=== PATIENT | female | born 1975 | race Caucasian/White ===

== ENCOUNTER 2016-09-04 10:11 | Emergency (ER) | payer MEDICAID ==
[~2016-09-04] VITALS: Ht 160 cm; Wt 89.2 kg
[2016-09-04 10:13] VITALS: BP 145/77
[2016-09-04] MEDS ORDERED: KETOROLAC 30 MG/1 ML ONE (10:57)
[2016-09-04] MEDS ORDERED: KETOROLAC 30 MG/1 ML IM ONE (11:00)
== END 2016-09-04 11:31 | disposition home or self-care (01) ==
LOC: ED 10:51
DX: H66.002 Acute suppurative otitis media without spontaneous rupture of ear drum, left ear (principal); J01.00 Acute maxillary sinusitis, unspecified
CPT/HCPCS: 96372; 99283; J1885

== ENCOUNTER 2018-01-28 20:46 | Emergency (ER) | payer MEDICAID ==
[~2018-01-28] VITALS: Ht 160 cm; Wt 78.8 kg
[2018-01-28 21:23] LABS: BASOPHILS # (AUTO) 0.04 x10^3/uL (0-0.1); BASOPHILS % (AUTO) 0 % (0-1); EOSINOPHILS # (AUTO) 0.04 x10^3/uL (0-0.4); EOSINOPHILS % (AUTO) 0 % (1-7); LYMPHOCYTES # (AUTO) 1.47 x10^3/uL (1-3.4); LYMPHOCYTES % (AUTO) 16 % (22-44); MD NO; MEAN CORPUSCULAR HEMOGLOBIN 30.6 pg (27.0-34.8); MEAN CORPUSCULAR HGB CONC 33.5 g/dL (32.4-35.8); MEAN CORPUSCULAR VOLUME 91.2 fL (80-100); MEAN PLATELET VOLUME 8.6 fL (7.4-10.4); MONOCYTES # (AUTO) 0.66 x10^3/uL (0.2-0.8); MONOCYTES % (AUTO) 7 % (2-9); NEUTROPHILS # (AUTO) 6.75 x10^3/uL (1.8-6.8); NEUTROPHILS % (AUTO) 75 % (42-75); PLATELET COUNT 316 x10^3/uL (130-400)
[2018-01-28 21:37] LABS: ALBUMIN 3.4 g/dL (3.4-5.0); ANION GAP 11 mmol/L (5-15); CALCIUM 8.9 mg/dL (8.5-10.1); CHLORIDE 110 mmol/L (98-107)
[2018-01-28 21:42] LABS: CREATININE 0.86 mg/dL (0.55-1.02)
[2018-01-28 21:43] LABS: ALANINE AMINOTRANSFERASE 25 U/L (12-78); ALKALINE PHOSPHATASE 82 U/L (45-117); BILIRUBIN,TOTAL 0.6 mg/dL (0.2-1.0); TOTAL PROTEIN 7.5 g/dL (6.4-8.2)
[2018-01-28 22:38] LABS: MICROSCOPIC AUTO
[2018-01-28 22:51] LABS: CULTURE INDICATED? YES
[2018-01-28] MEDS ORDERED: MAALOX/HYOSCYAMINE/LIDOCAINE 45 ML BTL ONE (23:48)
[2018-01-29] MEDS ORDERED: MAALOX/HYOSCYAMINE/LIDOCAINE 45 ML BTL PO ONE
[2018-01-29 00:38] VITALS: BP 115/75
== END 2018-01-29 01:48 | disposition home or self-care (01) ==
LOC: ED 01-29 01:42
DX: R91.1 Solitary pulmonary nodule (principal); N30.01 Acute cystitis with hematuria; F17.200 Nicotine dependence, unspecified, uncomplicated; Z90.89 Acquired absence of other organs
CPT/HCPCS: 36415; 74176; 76700; 80053; 81001; 83690; 84703; 85025; 86677; 87086; 99285

== ENCOUNTER 2018-03-18 17:59 | Emergency (ER) | payer MEDICAID ==
[~2018-03-18] VITALS: Ht 160 cm; Wt 82.0 kg
[2018-03-18 18:11] VITALS: BP 121/82
== END 2018-03-18 18:55 | disposition home or self-care (01) ==
LOC: ED 18:53
DX: K04.7 Periapical abscess without sinus (principal); F17.200 Nicotine dependence, unspecified, uncomplicated; Z90.49 Acquired absence of other specified parts of digestive tract
CPT/HCPCS: 41800; 99283

== ENCOUNTER 2018-08-15 13:10 | Emergency (ER) | payer MEDICAID ==
[~2018-08-15] VITALS: Ht 160 cm; Wt 87.6 kg
[2018-08-15 13:15] VITALS: BP 125/84
== END 2018-08-15 14:08 | disposition home or self-care (01) ==
LOC: ED 14:01
DX: J30.1 Allergic rhinitis due to pollen (principal); H69.83 Other specified disorders of Eustachian tube, bilateral; K21.9 Gastro-esophageal reflux disease without esophagitis
CPT/HCPCS: 99283

== ENCOUNTER 2018-08-18 13:34 | Emergency (ER) | payer MEDICAID ==
[~2018-08-18] VITALS: Ht 160 cm; Wt 88.7 kg
[2018-08-18 13:42] VITALS: BP 139/84
--- NOTE | 2018-08-18 14:48 | NUR ---
break rn: Patient/Caregiver given discharge instructions and they have confirmed that they understand the instructions. Patient ambulatory with steady gait.
== END 2018-08-18 14:50 | disposition home or self-care (01) ==
LOC: ED 14:10
DX: H66.003 Acute suppurative otitis media without spontaneous rupture of ear drum, bilateral (principal); J00 Acute nasopharyngitis [common cold]; K21.9 Gastro-esophageal reflux disease without esophagitis; F17.200 Nicotine dependence, unspecified, uncomplicated
CPT/HCPCS: 99283

== ENCOUNTER 2019-04-18 11:20 | Emergency (ER) | payer MEDICAID ==
[~2019-04-18] VITALS: Ht 160 cm; Wt 87.6 kg
[2019-04-18 11:30] VITALS: BP 124/64
[2019-04-18] MEDS ORDERED: IBUPROFEN 600 MG TABLET PO ONE (12:00)
[2019-04-18] MEDS ORDERED: IBUPROFEN 200 MG TABLET ONE (12:05)
== END 2019-04-18 13:13 | disposition home or self-care (01) ==
LOC: ED 12:30
DX: H60.312 Diffuse otitis externa, left ear (principal); H92.02 Otalgia, left ear; K21.9 Gastro-esophageal reflux disease without esophagitis; Z87.891 Personal history of nicotine dependence
CPT/HCPCS: 99283

== ENCOUNTER 2019-05-12 21:57 | Emergency (ER) | payer MEDICAID ==
[~2019-05-12] VITALS: Ht 160 cm; Wt 88.4 kg
[2019-05-12 21:58] VITALS: BP 139/88
--- NOTE | 2019-05-12 23:30 | NUR ---
pt to room from lobby
--- NOTE | 2019-05-13 00:29 | NUR ---
DC EDUCATION PROVIDED, PT DEMONSTRATES UNDERSTANDING. PT AMBULATED STEADILY TO DC WITH RN
== END 2019-05-13 00:30 | disposition home or self-care (01) ==
LOC: ED 23:47
DX: L02.01 Cutaneous abscess of face (principal); H66.42 Suppurative otitis media, unspecified, left ear; H10.33 Unspecified acute conjunctivitis, bilateral; R05 Cough; K21.9 Gastro-esophageal reflux disease without esophagitis
CPT/HCPCS: 71046; 99283

== ENCOUNTER 2019-11-28 20:40 | Emergency (ER) | payer MEDICAID ==
[~2019-11-28] VITALS: Ht 160 cm; Wt 84.3 kg
[2019-11-28] MEDS ORDERED: DIPH,PERTUSS(ACELL),TET VAC/PF 0.5 ML IM-VACC ONE ×2 (21:00→22:37)
--- NOTE | 2019-11-28 22:40 | NUR ---
LATE ENTRY: PT GOT CARPAL TUNNEL SX, SUTURES WERE REMOVED AND PT STATES SHE MOVED HER HAND TOO MUCH AND WOUND WAS SPLITTING. PT NAD, FCS no SOB, VSS, P/W/D, MAEx4, SENSATION AN DCMS INTACT. WCTM.
[2019-11-28] MEDS ORDERED: NEOSPORIN OINT. PKT 1 PACKET ONE (22:45)
[2019-11-28 22:48] VITALS: BP 129/86
--- NOTE | 2019-11-28 23:05 | NUR ---
RN SPLINTED FINGER. Patient given discharge instructions and they have confirmed that they understand the instructions. Patient ambulatory with steady gait. DENIES ADDITIONAL QUESTIONS OR NEEDS AT THIS TIME. NAD, RESP WNL, P/W/D. NO BELONGINGS LEFT IN ROOM AFTER DC.
== END 2019-11-28 23:19 | disposition home or self-care (01) ==
LOC: ED 20:50
DX: T81.30XA Disruption of wound, unspecified, initial encounter (principal); G56.01 Carpal tunnel syndrome, right upper limb; K21.9 Gastro-esophageal reflux disease without esophagitis; Z87.891 Personal history of nicotine dependence; Y83.8 Other surgical procedures as the cause of abnormal reaction of the patient, or of later complication, without mention of misadventure at the time of the procedure
CPT/HCPCS: 29125; 90471; 90715; 99283

== ENCOUNTER 2019-12-25 04:20 | Emergency (ER) | payer MEDICAID ==
[~2019-12-25] VITALS: Ht 160 cm; Wt 85.7 kg
[2019-12-25 04:22] VITALS: BP 142/88
[2019-12-25] MEDS ORDERED: ROPI2TAB8 PO (04:25)
--- NOTE | 2019-12-25 05:10 | NUR ---
PT TO ED WITH RIGHT WRIST PAIN POSTOP . PT REPORTS INCREASED SWELLING X2 WEEKS WITH PAIN AND DIFFICULTY FLEXING AND EXTENDING WRIST. ERP IN ROOM TO EVAL PT. PT UPDATED ON POC. SPO2 MONITORING IN PLACE, CALL LIGHT WITHIN REACH, ALL SAFETY MEASURES IN PLACE.
[2019-12-25] MEDS ORDERED: KETOROLAC 30 MG/1 ML ONE (05:26)
[2019-12-25] MEDS ORDERED: CEPHALEXIN 500 MG CAPSULE ONE (05:26)
[2019-12-25] MEDS ORDERED: HYDROcodone/APAP 5/325 TABLET ONE (05:27)
[2019-12-25] MEDS: KETOROLAC 30 MG/1 ML IM ONE ×2 (05:29→05:32)
[2019-12-25] MEDS ORDERED: HYDROcodone/APAP 5/325 TABLET PO ONE (05:30)
[2019-12-25] MEDS ORDERED: CEPHALEXIN 500 MG CAPSULE PO ONE (05:30)
== END 2019-12-25 05:43 | disposition home or self-care (01) ==
LOC: ED 05:00
DX: L03.113 Cellulitis of right upper limb (principal); G56.01 Carpal tunnel syndrome, right upper limb; K21.9 Gastro-esophageal reflux disease without esophagitis
CPT/HCPCS: 99283; J1885

== ENCOUNTER 2020-03-06 14:30 | Emergency (ER) | payer MEDICAID ==
[~2020-03-06] VITALS: Ht 160 cm; Wt 82.7 kg
[~2020-03-06 14:30] MED LIST: ROPI2TAB8 PO
[2020-03-06 14:33] VITALS: BP 123/79
== END 2020-03-06 15:35 ==
LOC: ED 15:29
DX: K04.7 Periapical abscess without sinus (principal); G89.18 Other acute postprocedural pain; M25.531 Pain in right wrist; K21.9 Gastro-esophageal reflux disease without esophagitis
CPT/HCPCS: 99283

== ENCOUNTER 2020-05-25 12:39 | Emergency (ER) | payer MEDICAID ==
[~2020-05-25] VITALS: Ht 160 cm; Wt 90.4 kg
[2020-05-25] MEDS ORDERED: BENZONATATE 100 MG CAPSULE PO ONE (13:30)
[2020-05-25] MEDS ORDERED: ALBUTEROL SULFATE 2.5 MG/3 ML NPPB ONE (13:30)
[2020-05-25] MEDS ORDERED: ALBUTEROL SULFATE 2.5 MG/3 ML ONE (13:45)
[2020-05-25] MEDS ORDERED: BENZONATATE 100 MG CAPSULE ONE (13:45)
--- NOTE | 2020-05-25 13:49 | NUR ---
TASK RN: PT MEDICATED PER JUL. TOELRATING BREATHING TX WELL
--- NOTE | 2020-05-25 14:31 | NUR ---
WOB "SLIGHTLY IMPROVED FROM LIKE A 12/13 TO 10/13" PATIENT STILL VERY UNCOMFORTABLE/CHILLED/ACHY. TEMP RECHECK 98.5 pROVIDER MADE AWARE
[2020-05-25] MEDS ORDERED: IBUPROFEN 200 MG TABLET PO ONE (15:30)
[2020-05-25 15:37] VITALS: BP 115/69
--- NOTE | 2020-05-25 15:38 | NUR ---
Patient given discharge instructions and they have confirmed that they understand the instructions. Patient ambulatory with steady gait.
== END 2020-05-25 15:40 | disposition home or self-care (01) ==
LOC: ED 15:30
DX: B34.9 Viral infection, unspecified (principal); Z20.822 Contact with and (suspected) exposure to COVID-19; R06.02 Shortness of breath; F17.200 Nicotine dependence, unspecified, uncomplicated; Z90.89 Acquired absence of other organs; Z90.49 Acquired absence of other specified parts of digestive tract
CPT/HCPCS: 71045; 87635; 94640; 99284; J7512; J7613